=== PATIENT | female | born 1955 | race Two or more races ===

== ENCOUNTER 2017-05-21 16:30 | Emergency (ER) | payer OTHER, MEDICAID ==
[~2017-05-21] VITALS: Ht 154.9 cm; Wt 50.0 kg
[2017-05-21 17:03] VITALS: BP 128/73
== END 2017-05-21 17:21 | disposition home or self-care (01) ==
LOC: ER 16:30
DX: T20.07XA Burn of unspecified degree of neck, initial encounter (principal); F17.210 Nicotine dependence, cigarettes, uncomplicated; Z98.890 Other specified postprocedural states; V43.52XA Car driver injured in collision with other type car in traffic accident, initial encounter; Y93.89 Activity, other specified; Y92.488 Other paved roadways as the place of occurrence of the external cause
CPT/HCPCS: 99283